=== PATIENT | male | born 1965 | race Caucasian/White ===

== ENCOUNTER 2018-04-13 09:23 | Inpatient (IN) | payer OTHER ==
[~2018-04-13] VITALS: Ht 180.3 cm; Wt 74.4 kg
[2018-04-13 09:57] LABS: BASOPHILS # (AUTO) 0.1 /CMM (0.0-0.2); BASOPHILS % (AUTO) 0.4 % (0.0-2.0); EOSINOPHILS % (AUTO) 0.4 % (0.0-6.0); HEMATOCRIT 46 % (39-51); LYMPHOCYTES % (AUTO) 12.5 % (20.0-44.0); MEAN CORPUSCULAR HGB CONC 35 g/dl (31.0-36.0); MEAN CORPUSCULAR VOLUME 94 fL (80-96); MONOCYTES # (AUTO) 0.9 /CMM (0.1-1.30); MONOCYTES % (AUTO) 5.9 % (2.0-12.0); NEUTROPHILS # (AUTO) 12.6 /CMM (1.8-8.9); NEUTROPHILS % (AUTO) 80.8 % (43.0-81.0); PLATELET COUNT (AUTO) 255 /CMM (150-450); RDW COEFFICIENT OF VARIATION 12.4 (11.5-15.0); RED BLOOD CELL COUNT(AUTO) 4.93 MIL/uL (4.5-6.0); WHITE BLOOD COUNT (AUTO) 15.7 K/uL (4.3-11.0)
[2018-04-13] MEDS ORDERED: IV NS 0.9% 1,000 ML BAG IV ONE (10:00)
[2018-04-13] MEDS ORDERED: HYDROMORPHONE MDV 1 MG in IV D5W 50 ML IV ONE (10:00)
--- NOTE | 2018-04-13 10:00 | NUR ---
LINE STARTED ON R AC G 18, BLOOD DRAWN FROM LINE AND SENT TO LAB
[2018-04-13 10:01] LABS: CALCIUM, SERUM 9.2 mg/dL (8.5-10.1); CREATININE 0.8 mg/dL (0.6-1.3); POTASSIUM 3.8 mmol/L (3.5-5.1)
[2018-04-13 10:06] LABS: ALBUMIN 4.1 g/dL (3.4-5.0); BILIRUBIN,DIRECT 0.1 mg/dL (0.0-0.2); BILIRUBIN,TOTAL 0.6 mg/dL (0.2-1.0); INR 0.97 (0.87-1.13); TOTAL PROTEIN, SERUM 8.2 g/dL (6.4-8.2)
--- NOTE | 2018-04-13 10:07 | NUR ---
pt brought in from home by paramedics for abdominal pain seral hours in duration unsure if abrupt or prolonged pain. pt has a history of abdominal surgery. pt anxieous c/o wanted to emesis but without incident. PIV placed in left AC labs drawn MD evaluated pt family just came into room. awaiting orders.
[2018-04-13] MEDS ORDERED: diphenhydrAMINE HCL 50 MG/ML VIAL ONE (10:12)
--- NOTE | 2018-04-13 10:26 | NUR ---
pt sent to CT
[2018-04-13] MEDS ORDERED: diphenhydrAMINE HCL 50 MG/ML VIAL IV ONE (10:30)
[2018-04-13] MEDS ORDERED: HYDROMORPHONE INJ 2 MG/ML DISP.SYRIN ONE ×2 (10:54→16:27)
[2018-04-13] MEDS ORDERED: IV D5/0.45 NACL 1,000 ML IV PRN (11:27)
[2018-04-13] MEDS ORDERED: ONDANSETRON HCL/PF 4 MG/2 ML VIAL IVP PRN ×2 (11:30→20:30)
[2018-04-13] MEDS ORDERED: HYDROMORPHONE 1 MG/1 ML DISP.SYRIN IV PRN (11:30)
[2018-04-13] MEDS ORDERED: hydrALAZINE HCL IV 20 MG VIAL IV PRN (11:30)
[2018-04-13] MEDS ORDERED: Z GUARD REMEDY 2 OZ OINT TP PRN (11:30)
[2018-04-13] MEDS ORDERED: MAGNESIUM HYDROXIDE 30 ML UDC PO PRN (11:30)
[2018-04-13] MEDS ORDERED: HYDROMORPHONE INJ 2 MG/ML DISP.SYRIN IV PRN (11:30)
[2018-04-13] MEDS ORDERED: diphenhydrAMINE HCL 50 MG/ML VIAL IV PRN (11:30)
[2018-04-13] MEDS ORDERED: PIPERACILLIN /TAZOBACTAM 3.375 G in IV D5W 50 ML IV ONE (11:30)
[2018-04-13] MEDS ORDERED: ACETAMINOPHEN 325 MG TABLET PO PRN (11:30)
[2018-04-13] MEDS ORDERED: MAG HYDROX/AL HYDROX/SIMETH 30 ML UDC PO PRN (11:30)
[2018-04-13] MEDS ORDERED: HYDROMORPHONE 1 MG/1 ML DISP.SYRIN IV ONE (11:30)
--- NOTE | 2018-04-13 11:41 | NUR ---
REPORT GIVEN TO LENO LOTT FOR CONTINUITY OF CARE IN [place]
[2018-04-13 12:00] VITALS: BP 127/63
--- NOTE | 2018-04-13 12:15 | NUR ---
ESTHETICIAN/SPA COORDINATOR NOTES PATIENT RECEIVED FROM ER VIA GURNEY, PT ABLE TO AMBULATE TO BED. ORIENTED TO ROOM AND UNIT AND USE OF CALL LIGHT WITH VERBAL UNDERSTANDING. PATIENT AWAKE ALERT AND VERBALLY UNDERSTANDING NOTED. DR. CARMEN TO SEE PATIENT FOR POSSIBLE SURGICAL PROCEDURE, PAIN MANAGED WITH PRN PAIN MEDICATIONS. DR GALICIA AWARE PT IS ON THE UNIT WITH ADMITTING ORDERS WILL CONTINUE TO MONITOR AND ASSIST WITH ADMISSION PROCESS
[2018-04-13] MEDS: HYDROMORPHONE INJ 0.5 MG/0.5 ML SYRINGE IV PRN ×2 (13:37→15:43)
--- NOTE | 2018-04-13 13:40 | NUR ---
RN NOTES PRN PAIN MEDICATION GIVEN ORDERED, WILL CONTINUE TO MONITOR, AWAITING DR CARMEN FOR POSSIBLE SURGICAL PROCEDURE
--- NOTE | 2018-04-13 15:25 | NUR ---
RN NOTES DR. CARMEN NOTIFIED OF PT WITH HIGH TEMPERATURE 100.3 AND NEED FOR CARDIAC FOLOW UP. COOLING MEASURES ATTEMPTED AND INEFFECTIVE PER DR. CARMEN NO PO MEDS TO BE GIVEN, RECTAL TYLENOL ADMINISTERED ORDERED, WILL CONTINUE TO MONITOR
[2018-04-13 15:30] VITALS: BP 138/68
[2018-04-13] MEDS ORDERED: ACETAMINOPHEN 650 MG/SUPP.RECT RC ONE (15:30)
[2018-04-13 16:00] VITALS: BP 130/68
--- NOTE | 2018-04-13 16:04 | NUR ---
RN NOTES PATIENT TAKEN TO OR FOR PROCEDURE, NOTIFIED OR AND DR. CARMEN PT WITH TEMPERATURE 100.8 AND TO BE SEEN BY CARDIAC DOCTOR PER OR OKAY TO TAKE PT WILL CONTINUE TO MONITOR UPON RETURN TO UNIT
[2018-04-13] MEDS ORDERED: ROCURONIUM BROMIDE 50 MG/5 ML ONE ×2 (16:27→17:28)
[2018-04-13] MEDS ORDERED: SUCCINYLCHOLINE CHLORIDE 20 MG/ML VIAL ONE (16:27)
[2018-04-13] MEDS ORDERED: BUPIVACAINE 0.25% 75 MG/30 ML VIAL ONE (16:30)
[2018-04-13] MEDS ORDERED: LIDOCAINE 1%-EPI 1:100,000 20 ML VIAL ONE (16:30)
[2018-04-13] MEDS ORDERED: ANESTHESIA TRAY IN PYXIS 1 EA TRAY MC ONE ×2 (16:31→19:42)
--- NOTE | 2018-04-13 17:55 | NUR ---
RN NOTES RECEIVED CALL FROM OR, DELIVERED ZOSYN TO OR FOR ADMINISTRATION, WILL CONTINUE TO MONITOR PT UPON RETURN TO UNIT
[2018-04-13] MEDS: PIPERACILLIN /TAZOBACTAM 4.5 G in IV NS 0.9% 50 ML IV SCH ×2 (18:06→23:59)
--- NOTE | 2018-04-13 18:46 | NUR ---
RN NOTES PATIENT CONTINUES IN OR, WILL GIVE REPORT TO ONCOMING MEDICATION SPECIALIST NURSE FOR CONTINUITY OF CARE UPON RETURN FROM OR
--- NOTE | 2018-04-13 20:00 | NUR ---
TELE WEB MARKETING COORDINATOR INITIAL NOTES RECEIVED PT FROM RECOVERY ROOM RESTING BUT AROUSES TO TOUCH, NO SIGNS OF NAY DISCOMFORT AT THIS TIME. VITAL SIGNS FF BP 126/70, PULSE 98, RESP 18 TEMP 98.2 AND O2 SAT 95 % WITH O2 AT 2 LITERS VIA NC. HE'S ON DVT PUMP BOTH LOWER LEGS AND PT TOLERATED WELL. IVF STARTED . TELE SR HEART RATE 74 .ENCOURAGED HIM TO USED THE CALL LIGHT SYSTEM IF HE NEEDS ANYTHING. KEPT HIM COMFORTABLE AT ALL TIMES. PLACE CALL LIGHT AT REACH. FAMILY STILL AT THE BEDSIDE. WILL CONTINUE TO MONITOR.
[2018-04-13] MEDS: NICOTINE PATCH (21MG) 21 MG PATCH.TD24 TD SCH (20:55)
--- NOTE | 2018-04-13 20:55 | NUR ---
SYSTEMS PROGRAMMER ANALYST NOTES' NICODERM PATCH ADMINISTERED PER PT REQUESTED AND ORDERED. KEPT HIM WARM AND COMFORTABLE AT ALL TIMES. PLACE CALL LIGHT AT REACH.
[2018-04-13 21:11] VITALS: BP 126/70
[2018-04-13] MEDS: IV LR 1000 ML 1,000 ML IV PRN (21:26)
[2018-04-14] VITALS: BP 121/74
[2018-04-14] MEDS: HYDROMORPHONE INJ 2 MG/ML DISP.SYRIN IV PRN ×5 (00:10→11:10)
[2018-04-14] MEDS: HYDROCODONE/APAP 5/325MG 1 EACH TABLET PO PRN ×3 (03:17→13:36)
[2018-04-14 04:03] VITALS: BP 125/68
[2018-04-14] MEDS: PIPERACILLIN /TAZOBACTAM 4.5 G in IV NS 0.9% 50 ML IV SCH ×3 (05:29→17:50)
--- NOTE | 2018-04-14 07:00 | NUR ---
MS PATTERN GRADER CUTTER CLOSING NOTES PT BACK TO REST AFTER PAIN MEDICATION GIVEN EARLIER. IVF STILL INFUSING. KAN MORSE INTACT AND DRAINING WELL. STABLE LAURYN THE NIGHT EXCEPT OF PAIN SPECIALLY WHEN HE'S COUGHING . TOLD HIM TO HOLD PILLOWS ON HIS ABDOMEN TO PREVENT SOME PRESSURE WHILE HIS COUGHING BUT HE DOESN'T WANT IT. DVT STILL ON BOTH LOWER LEGS. NO EDEMA NOTED. NO SIGNS OF ANY ACUTE DISTRESS. ALL DUE MEDS GIVEN AND ALL NEEDS MET. KEPT HIM WARM AND COMFORTABLE AT ALL TIMES. PLACE CALL LIGHT AT REACH. ENDORSE TO AM NURSE.
[2018-04-14 07:07] LABS: BASOPHILS % (AUTO) 0.3 % (0.0-2.0); HEMATOCRIT 37 % (39-51); HEMOGLOBIN 12.6 g/dL (13.5-17.5); LYMPHOCYTES # (AUTO) 1.3 /CMM (0.8-4.8); LYMPHOCYTES % (AUTO) 10.6 % (20.0-44.0); MEAN CORPUSCULAR HGB CONC 35 g/dl (31.0-36.0); MEAN CORPUSCULAR VOLUME 95 fL (80-96); MONOCYTES # (AUTO) 0.6 /CMM (0.1-1.30); MONOCYTES % (AUTO) 5.2 % (2.0-12.0); NEUTROPHILS # (AUTO) 10.4 /CMM (1.8-8.9); NEUTROPHILS % (AUTO) 83.9 % (43.0-81.0); PLATELET COUNT (AUTO) 205 /CMM (150-450); RDW COEFFICIENT OF VARIATION 13.6 (11.5-15.0); RED BLOOD CELL COUNT(AUTO) 3.83 MIL/uL (4.5-6.0); WHITE BLOOD COUNT (AUTO) 12.4 K/uL (4.3-11.0)
[2018-04-14 07:49] LABS: CALCIUM, SERUM 8.6 mg/dL (8.5-10.1); CREATININE 0.7 mg/dL (0.6-1.3); PHOSPHORUS 3.3 mg/dL (2.5-4.9); POTASSIUM 3.8 mmol/L (3.5-5.1)
[2018-04-14 08:00] VITALS: BP 117/78
[2018-04-14] MEDS: IV LR 1000 ML 1,000 ML IV PRN (08:16)
[2018-04-14] MEDS: NICOTINE PATCH (21MG) 21 MG PATCH.TD24 TD SCH (08:16)
[2018-04-14] MEDS: DOCUSATE SODIUM 100 MG CAPSULE PO SCH ×2 (08:16→17:47)
--- NOTE | 2018-04-14 12:36 | NUR ---
MS RN AM NOTES PT ALERT AND ORIENTED X4. IVF STILL INFUSING. KAN MORSE INTACT, EMPTIED WITH 50 ML SEROSANGUINEOUS FLUID . TOLD HIM TO HOLD PILLOWS ON HIS ABDOMEN TO PREVENT SOME PRESSURE. DVT STILL ON BOTH LOWER LEGS. NO EDEMA NOTED. NO SIGNS OF ANY ACUTE DISTRESS. KEPT HIM WARM AND COMFORTABLE AT ALL TIMES. PLACE CALL LIGHT AT REACH. PT COMPLAINS OF PAIN AT INCISION SIDE , PRN MEDS GIVEN. PT STATES PAIN RELIEVED AFTER NORCO. WILL CALL TO
[2018-04-14] MEDS: POLYETHYLENE GLYCOL 3350 17 GM POWD.PACK PO SCH ×2 (15:00→21:53)
[2018-04-14] MEDS: HYDROCODONE/APAP 10/325MG 1 EA TABLET PO PRN ×2 (15:01→19:26)
[2018-04-14] MEDS: SENNOSIDES 8.6 MG TABLET PO SCH ×2 (15:02→21:52)
[2018-04-14] MEDS: ESCITALOPRAM OXALATE (10 MG) 10 MG TABLET PO SCH (15:02)
--- NOTE | 2018-04-14 15:05 | NUR ---
GAVE PRN PAIN MED NORCO 10/325 MG PO AND PT DENIES FEELING NAUSEOUS AT THIS TIME AND WILL LET US KNOW IF HE STARTS FEELING NAUSEOUS.
[2018-04-14] MEDS: LORAZEPAM 0.5 MG TABLET PO PRN (17:47)
--- NOTE | 2018-04-14 18:20 | NUR ---
MS RN CLOSING NOTES PT EATING DINNER, STATES THAT PAIN MANAGEMENT STARTED WORK AND HE'S FEEL BETTER.KAN MORSE IS INTACT AND DRAINING PROPERLY WITH LOW AMOUNT OF SEROSEROUS FLUID. PT AMBULATED WITH NO HELP.MOM AT THE BEDSIDE. CALL LIGHT WITH IN REACH
--- NOTE | 2018-04-14 19:20 | NUR ---
MS YSABEL INITIAL NOTES RECEIVED REPORT FROM AM NURSE WHILE CHECKING THE PATIENT AT THE SAME TIME. HE'S AWAKE AND ALERT TALKING TO HIS MOM NO SIGNS OF ANY SOB NOTED BUT COMPLAINING OF PAIN ON HIS ABDOMEN. CHECKED HIS PAIN MEDS AND HE WANTS NORCO TABLET .I ENCOURAGE HIM ALSO TO AMBULATE HE CAN .HE STATED MAYBE LATER BUT HE MENTIONED TO ME THAT HE'S AMBULATING TO HIS ROOM BACK AND FORTH. KEPT HIM COMFORTABLE AT ALL TIMES. WILL CONTINUE TO MONITOR.
--- NOTE | 2018-04-14 19:26 | NUR ---
MS STRAINER CLEANER NOTES NORCO TABLET GIVEN PO ORDERED AND PT TOLERATED WELL. NO N/V NOTED. EDUCATE HIM THE POSSIBLE SIDE EFFECT AND HE UNDERSTOOD WELL . KAN MORSE STILL INTACT AND SMALL AMOUNT OF OUTPUT NOTED. WILL CONTINUE TO MONITOR.
[2018-04-14 20:00] VITALS: BP 123/72
[2018-04-14] MEDS ORDERED: KETOROLAC TROMETHAMINE INJ 30 MG/ML VIAL IM PRN (20:30)
[2018-04-14] MEDS ORDERED: MAGNESIUM HYDROXIDE 30 ML UDC PO PRN (20:30)
--- NOTE | 2018-04-14 20:30 | NUR ---
MS YSABEL NOTED SEEN BY DR SANDOVAL, CHECKED PATIENT AND SPOKE HIM TO PT MOTHER WELL. HE GAVE ORDERS NOTED AND CARRIED OUT. WILL CONTINUE TO MONITOR.PLACE CALL LIGHT AT REACH.
[2018-04-14] MEDS: ZOLPIDEM TARTRATE 5 MG TABLET PO PRN (21:53)
[2018-04-14] MEDS: KETOROLAC TROMETHAMINE INJ 30 MG/ML VIAL IV PRN (22:40)
--- NOTE | 2018-04-14 22:40 | NUR ---
MS POINT OF CARE SPECIALIST NOTES PT CALLED AND COMPLAINING OF TOO MUCH PAIN , NORCO TABLET NOT DUE YET SO WE OFFERED TORADOL IVP. HE STATED OK JUST TO HELPED MY PAIN SUBSIDE. ADMINISTERED BY ANOTHER NURSE LAURYN IVP ORDERED. EDUCATE FOR POSSIBLE SIDE EFFECT AND PT UNDERSTOOD WELL. KEPT HIM WARM AND SAFE AT ALL TIMES. GARY STILL IN PLACE WITH SMALL AMOUNT OF DISCHARGE NOTED. WILL CONTINUE TO MONITOR.PLACE CALL LIGHT AT REACH.
[2018-04-15] MEDS: PIPERACILLIN /TAZOBACTAM 4.5 G in IV NS 0.9% 50 ML IV SCH ×4 (00:20→17:10)
--- NOTE | 2018-04-15 01:00 | NUR ---
MS YSABEL NOTES' SEEN PT IN BED SLEEPING COMFORTABLY WITHOUT ANY DISTRESS OR ANY DISCOMFORT NOTED. WILL CONTINUE TO MONITOR.
[2018-04-15] MEDS: HYDROCODONE/APAP 10/325MG 1 EA TABLET PO PRN ×2 (02:14→15:37)
--- NOTE | 2018-04-15 02:14 | NUR ---
MS OPERATIONS REPRESENTATIVE NOTES PT WOKE UP ASKING FOR HIS PAIN MEDS AND HE WANTS TORADOL . I SPOKE TO HIM THAT ITS DUE YET AND THAT MEDICATION Q 6HRS PRN. IF HE LIKE HE CAN HAVE HIS NORCO TABLET TO RELIEVE HIS PAIN. HE STATED OK BUT DON'T FORGET MY TORADOL LATER. HE ALSO STATED HE MUCH FEEL BETTER WITH THAT PAIN MEDICATION. NO N/V NOTED. ABLE TO AMBULATE WITHOUT ANY DISCOMFORT. WILL CONTINUE TO MONITOR.
[2018-04-15] MEDS: KETOROLAC TROMETHAMINE INJ 30 MG/ML VIAL IV PRN ×3 (05:27→17:13)
--- NOTE | 2018-04-15 05:45 | NUR ---
MS YSABEL NOTES PT CALLED AND COMPLAINING OF PAIN, TORADOL IVP GIVEN BY NURSE RAHMAN/RN ORDERED AND PT REQUESTED. EDUCATE PT FOR POSSIBLE SIDE EFFECT. KEPT HIM WARM AND COMFORTABLE AT ALL TIMES. PLACE CALL LIGHT AT REACH.
[2018-04-15 06:15] LABS: BASOPHILS % (AUTO) 0.2 % (0.0-2.0); EOSINOPHILS % (AUTO) 0.9 % (0.0-6.0); HEMATOCRIT 39 % (39-51); HEMOGLOBIN 13.5 g/dL (13.5-17.5); LYMPHOCYTES # (AUTO) 1.8 /CMM (0.8-4.8); LYMPHOCYTES % (AUTO) 14.2 % (20.0-44.0); MEAN CORPUSCULAR HGB CONC 34 g/dl (31.0-36.0); MEAN CORPUSCULAR VOLUME 96 fL (80-96); MONOCYTES # (AUTO) 0.7 /CMM (0.1-1.30); MONOCYTES % (AUTO) 5.2 % (2.0-12.0); NEUTROPHILS % (AUTO) 79.5 % (43.0-81.0); PLATELET COUNT (AUTO) 229 /CMM (150-450); RDW COEFFICIENT OF VARIATION 13.4 (11.5-15.0); RED BLOOD CELL COUNT(AUTO) 4.11 MIL/uL (4.5-6.0); WHITE BLOOD COUNT (AUTO) 12.6 K/uL (4.3-11.0)
[2018-04-15 06:35] LABS: CALCIUM, SERUM 9.6 mg/dL (8.5-10.1); CREATININE 0.7 mg/dL (0.6-1.3); MAGNESIUM 2.4 mg/dL (1.8-2.4); POTASSIUM 3.8 mmol/L (3.5-5.1)
--- NOTE | 2018-04-15 07:11 | NUR ---
MS CALL OR CONTACT CENTRE MANAGER CLOSING NOTES PT SLEEPING COMFORTABLY IN BED AFTER PAIN MEDICATION GIVEN, NO SIGNS OF ANY ACUTE DISTRESS NOTED. ALL DUE MEDS GIVEN AND ALL NEEDS MET. KEPT HIM WARM AND COMFORTABLE AT ALL TIMES. ENCOURAGE HIM TO USED THE EXERCISE SPIROMETER AND EDUCATE THE PURPOSE OF IT AND HE UNDERSTOOD WELL. WILL ENDORSE TO AM NURSE FOR CONTINUITY OF CARE. PLACE CALL LIGHT AT REACH.
[2018-04-15 08:00] VITALS: BP 117/79
[2018-04-15] MEDS: LORAZEPAM 0.5 MG TABLET PO PRN ×2 (09:04→20:30)
[2018-04-15] MEDS: ESCITALOPRAM OXALATE (10 MG) 10 MG TABLET PO SCH (09:04)
[2018-04-15] MEDS: DOCUSATE SODIUM 100 MG CAPSULE PO SCH ×2 (09:04→17:18)
[2018-04-15] MEDS: NICOTINE PATCH (21MG) 21 MG PATCH.TD24 TD SCH (09:05)
--- NOTE | 2018-04-15 11:00 | NUR ---
PT AMBULATED ALONG THE HALLWAY 4X TODAY TOLERATED WELL.WITH NO C/O PAIN OR DISTRESS.
[2018-04-15] MEDS ORDERED: ESCI10TA PO (14:32)
--- NOTE | 2018-04-15 14:58 | NUR ---
MS RN AM NOTES PT ALERT AND ORIENTED X4. IV LINE INTACT. KAN MORSE INTACT, HAS ABOUT 10ML FLUID, NO S/S OF INFECTION NO EDEMA NOTED. NO SIGNS OF ANY ACUTE DISTRESS. KEPT HIM WARM AND COMFORTABLE AT ALL TIMES. PLACE CALL LIGHT AT REACH. PT STATED FEELING MUCH BETTER. PT ENCOURAGED TO AMBULATE. CALL LIGHT WITHIN REACH . WILL CONTINUE TO MONITOR
[2018-04-15 16:00] VITALS: BP 140/76
--- NOTE | 2018-04-15 17:13 | NUR ---
EMPTIED PT'S GARY DRAIN WITH 10 ML YELLOW DRAINAGE SINCE THE START OF AM SHIFT.
--- NOTE | 2018-04-15 17:19 | NUR ---
SCANNED COLACE 100 MG CAPSULE SEVERAL TIMES BUT THE BARCODE HAS BEEN CUT OFF
--- NOTE | 2018-04-15 19:13 | NUR ---
MS RN CLOSING NOTES PT EATING DINNER,KAN MORSE IS INTACT AND DRAINING PROPERLY WITH LOW AMOUNT OF SEROSEROUS FLUID. PT AMBULATED WITH NO HELP. CALL LIGHT WITH IN REACH
--- NOTE | 2018-04-15 19:15 | NUR ---
KAN MORSE EMPTIED WITH 10 ML OF YELLOW DRAINAGE.
--- NOTE | 2018-04-15 19:25 | NUR ---
MS/DIRECTOR RETIREMENT; RECEIVED PT IN BED AWAKE, ALERT AND ORIENTED. BREATHING NON LABORED. ABDOMINAL INCISIONS INTACT OPENED TO AIR WITH SOME REDNESS. HAS GARY ON THE RT SIDE OF THE ABDOMEN WITH SMALL AMOUNT OF DRAINAGE SLIGHT RED.. HL ON RAC INTACT AND PATENT. BED ON LOWER POSITION AND LOCKED FOR SAFETY. SIDE RAILS X 2 UP FOR SAFETY. PT ENC. TO USE INCENTIVE SPIROMETRY EXERCISE. ALSO ENC. TO AMBULATE. WILL CONTINUE TO MONITOR CALL LIGHT AND URINAL WITHIN REACH.
[2018-04-15 20:00] VITALS: BP 136/78
[2018-04-15] MEDS: POLYETHYLENE GLYCOL 3350 17 GM POWD.PACK PO SCH (21:27)
[2018-04-15] MEDS: SENNOSIDES 8.6 MG TABLET PO SCH (21:28)
[2018-04-15] MEDS: ZOLPIDEM TARTRATE 5 MG TABLET PO PRN (22:11)
[2018-04-16] MEDS: PIPERACILLIN /TAZOBACTAM 4.5 G in IV NS 0.9% 50 ML IV SCH ×3 (00:04→11:21)
[2018-04-16] MEDS: KETOROLAC TROMETHAMINE INJ 30 MG/ML VIAL IV PRN ×3 (00:08→15:41)
--- NOTE | 2018-04-16 00:08 | NUR ---
PRN TORADOL: PT C/O 06/01 ABDOMINAL PAIN RADIATING TO FLANK AREA , REQUESTING FOR TORADOL. PRN TORADOL 30 MG IVP ADMINISTERED TO THE PT AT THIS TIME, EDUCATE REGARDING MEDICATION SIDE EFFECT, WILL CONTINUE TO MONITOR AND REASSESS PT
--- NOTE | 2018-04-16 06:07 | NUR ---
PRN TORADOL: PT C/O 06/01 PAIN ON RIGHT FLANK AREA AND RIGHT LOWER ABDOMEN AREA, REQUESTING FOR PAIN MEDICATION, PRN TORADOL 30 MG IVP ADMINISTERED TO THE PT AT THIS TIME. WILL CONTINUE TO MONITOR AND REASSESS
--- NOTE | 2018-04-16 07:00 | NUR ---
MS/INSURANCE LEGAL ASSISTANT; SLEPT FAIRLY. STILL NO BM. PT HAS BEEN AMBULATING IN THE ROOM. VOIDED CLEAR YELLOW URINE. GARY INTACT WITH 10 ML OUTPUT. CONTINUE TO MONITOR. WILL ENDORSE TO THE DAY SHIFT NURSE.
[2018-04-16 08:00] VITALS: BP 157/99
--- NOTE | 2018-04-16 08:00 | NUR ---
MS RN AM NOTES RECEIVED PT IN BED AWAKE, ALERT AND ORIENTED. BREATHING NON LABORED. ABDOMINAL INCISIONS INTACT OPENED TO AIR.NO S/S OF INFECTION.PAIN MGT TO ABDOMINAL PAIN PRN.HAS GARY ON THE RT SIDE OF THE ABDOMEN WITH SMALL AMOUNT OF YELLOW DRAINAGE.IV HL ON RAC INTACT AND PATENT. BED ON LOWER POSITION AND LOCKED FOR SAFETY. SIDE RAILS X 2 UP FOR SAFETY. PT ENC. TO USE INCENTIVE SPIROMETRY BUT PT REFUSED. PT AMBULATES IN HIS ROOM OFTEN.WILL CONTINUE TO MONITOR CALL LIGHT AND URINAL WITHIN REACH.
[2018-04-16] MEDS: NICOTINE PATCH (21MG) 21 MG PATCH.TD24 TD SCH (08:55)
[2018-04-16] MEDS: ESCITALOPRAM OXALATE (10 MG) 10 MG TABLET PO SCH (08:55)
[2018-04-16] MEDS: DOCUSATE SODIUM 100 MG CAPSULE PO SCH (08:55)
[2018-04-16] MEDS ORDERED: CEPH-570 PO (11:20)
[2018-04-16] MEDS ORDERED: LORA-259 PO (11:20)
[2018-04-16] MEDS ORDERED: HYDR-548 PO (11:20)
[2018-04-16] MEDS: LORAZEPAM 0.5 MG TABLET PO PRN (11:21)
--- NOTE | 2018-04-16 17:00 | NUR ---
DISCHARGED HOME WITH STABLE V/S ACCOMPANIED BY HIS MOM.DISCHARGE INSTRUCTIONS,MED RECONCILIATION,PRESCRIPTIONS MED AND HEALTH TEACHING GIVEN TO THE PT.GARY CARE TEACHING DONE.INSTRUCTED TO FOLLOW UP WITH DR CARMEN AND PRIMARY DOCTOR IN 1-2 WEEKS.DENIES ANY PAIN OR DISTRESS.
--- NOTE | 2018-04-16 17:01 | NUR ---
IV H/L REMOVED TO RT ARM WITH NO BLEEDING,NO REDNESS OR SWELLING NOTED.
== END 2018-04-16 16:54 | disposition home or self-care (01) | DRG 337 ==
LOC: ER 09:25 → MED 11:35 → TELE 19:20 → MED 04-14 09:06
PROVIDERS: ADMIT Internal Medicine; ATTEND Internal Medicine
PROC: 0DNW4ZZ Release Peritoneum, Percutaneous Endoscopic Approach (ICD-10-PCS; principal; 2018-04-13 16:00)
PROC: 0DTJ4ZZ Resection of Appendix, Percutaneous Endoscopic Approach (ICD-10-PCS; principal; 2018-04-13 16:00)
DX: K35.2 Acute appendicitis with generalized peritonitis (principal); D72.829 Elevated white blood cell count, unspecified; K66.0 Peritoneal adhesions (postprocedural) (postinfection); Z87.891 Personal history of nicotine dependence; Z98.890 Other specified postprocedural states; F32.9 Major depressive disorder, single episode, unspecified
CPT/HCPCS: 36415; 71045-TC; 80048-TC; 80076-TC; 83690-TC; 83735-TC; 84100-TC; 85025-TC; 85730-TC; 86850-TC; 87081-TC; 88304-TC; 88305-TC; A4216; A4606; J0330; J1100; J1170; J1200; J1885; J2405; J2543; J2704; J2710; J3490; J7030; J7060; J7120; Z7610